=== PATIENT | male | born 1980 | race American Indian/Alaskan Native ===

== ENCOUNTER 2016-09-30 15:19 | Emergency (ER) | payer OTHER ==
[2016-09-30] MEDS ORDERED: TYLENOL #3 PO ONE (16:48)
[2016-09-30] MEDS ORDERED: MOTRIN PO ONE (16:48)
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
[2016-09-30 18:34] VITALS: BP 121/74
== END 2016-09-30 19:07 | disposition home or self-care (01) ==
LOC: ED 15:19
DX: S09.90XA Unspecified injury of head, initial encounter (principal); S16.1XXA Strain of muscle, fascia and tendon at neck level, initial encounter; V49.88XA Car occupant (driver) (passenger) injured in other specified transport accidents, initial encounter; Y93.89 Activity, other specified; Y99.8 Other external cause status; Y92.488 Other paved roadways as the place of occurrence of the external cause
CPT/HCPCS: 70450; 72125